=== PATIENT | female | born 1940 | race Asian ===

== ENCOUNTER 2020-06-18 19:51 | Emergency (ER) | payer OTHER, MEDICARE ==
[2020-06-18 20:10] VITALS: BP 155/79; PULSE 82; TEMP 98.3; BMI 24.4
--- NOTE | 2020-06-18 21:32 | PDOC ---
Documentation entered by Luis Spear SCRIBE, acting as scribe for Skye Banks MD. Skye Banks MD: This documentation has been prepared by the [email or web address] Angel, SCRIBE, under my direction and personally reviewed by me in its entirety. I confirm that the documentation accurately reflects all work, treatment, procedures, and medical decision making performed by me. History of Present Illness - General Chief Complaint: Pain, Acute Stated Complaint: RIGHT ANKLE/LEG PAIN Time Seen by Provider: 06/18/20 19:53 History Source: Patient Exam Limitations: No Limitations - History of Present Illness Initial Comments: 06/18/20 20:31 The patient is a 80 year old female with a significant past medical history of HTN who was sent by her PCP () for r/o DVT. The patient notes increasing swelling and redness in the inside of her right ankle area for the last 2 weeks. The patient also reports pain in her right calf and ankle when walking, especially when using stairs. The patient has taken no meds for pain because when she is not walking she says she is fine. The patient denies cough, SOB, fever/chills, recent traumas or wounds to her right lower extremity. She states that her previous doctor had ultrasound performed on her right leg "within the last year" to rule out blood clot. Long history of varicose veins/skin discoloration (venous stasis changes) lower legs bilaterally Past History - Medical History Allergies/Adverse Reactions: Allergies Allergy/AdvReac Type Severity Reaction Status Date / Time No Known Allergies Allergy Verified 06/18/20 19:52 Review of Systems - Review of Systems Able to Perform ROS?: Yes Comments:: 06/18/20 20:32 GENERAL/CONSTITUTIONAL: No fever or chills. No weakness. HEAD, EYES, EARS, NOSE AND THROAT: No change in vision. No ear pain or discharge. No sore throat. CARDIOVASCULAR: No chest pain or shortness of breath. RESPIRATORY: No cough, wheezing, or hemoptysis. GASTROINTESTINAL: No nausea, vomiting, diarrhea or constipation. GENITOURINARY: No dysuria, frequency, or change in urination. MUSCULOSKELETAL: +RLE pain/edema. No neck or back pain. SKIN: No rash NEUROLOGIC: No headache, vertigo, loss of consciousness, or change in strength/sensation. ENDOCRINE: No increased thirst. No abnormal weight change. HEMATOLOGIC/LYMPHATIC: No anemia, easy bleeding, or history of blood clots. ALLERGIC/IMMUNOLOGIC: No hives or skin allergy. *Physical Exam - Physical Exam 06/18/20 20:32 GENERAL: Awake, alert, and fully oriented, in no acute distress HEAD: No signs of trauma EYES: PERRLA, EOMI, sclera anicteric, conjunctiva clear ENT: Auricles normal inspection, hearing grossly normal, nares patent, oropharynx clear without exudates. Moist mucosa NECK: Normal ROM, supple, no lymphadenopathy, JVD, or masses LUNGS: Breath sounds equal, clear to auscultation bilaterally. No wheezes, and no crackles HEART: Regular rate and rhythm, normal S1 and S2, no murmurs, rubs or gallops ABDOMEN: Soft, nontender, normoactive bowel sounds. No guarding, no rebound. No masses EXTREMITIES: +RLE 3cm by 4cm erythematous, mildly tender and warm to touch just distal to medial malleolus. No purulent discharge or open wounds. Venous stasis changes of the distal lower extremity bilaterally, mild non pitting edema of the RLE to the mid calf, no tenderness present in the calf. NEUROLOGICAL: Cranial nerves II through XII grossly intact. Normal speech, normal gait SKIN: Warm, Dry, normal turgor, no rashes or lesions noted. 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 Morrison's office to rule out DVT. She states that she has had a few weeks of increasing redness/swelling in the medial portion of her right ankle and pain in the right calf/ankle with walking. She denies fever/chills or shortness of breath/respiratory symptoms. Exam as noted Doppler duplex ultrasound of the right lower extremity negative for DVT Results discussed with Dr. Morrison. The patient will be started on Augmentin as per Dr. Morrison (prescription has been sent to the patient's pharmacy). Patient will be discharged with advised to return to the ER if she has worsening pain/swelling/redness in her leg or if she develops fever. She has been advised to take each dose of the Augmentin with a full meal. Discharge - Discharge Information Problems reviewed: Yes Clinical Impression/Diagnosis: Cellulitis of right ankle Condition: Stable - Follow up/Referral Referrals: Arminda Morrison MD [Primary Care Provider] - - Patient Discharge Instructions Patient Printed Discharge Instructions: DI for Cellulitis -- Adult Additional Instructions: take antibiotics as prescribed by Dr. Morrison Elevate right lower leg is much as possible Return to ER if you have worsening swelling/pain/redness or if you develop fever Follow-up with Dr. Morrison as arranged - Post Discharge Activity
== END 2020-06-18 21:30 ==
LOC: FER 19:51
DX: L03.115 Cellulitis of right lower limb (principal)
CPT/HCPCS: 93971-TC; 99284-25

== ENCOUNTER 2023-10-25 15:06 | Inpatient (IN) | payer OTHER, MEDICARE ==
[2023-10-25] MEDS ORDERED: SODIUM CHLORIDE 0.9% 500 ML INFUS.BAG IV ONE (15:30)
[2023-10-25] MEDS ORDERED: diphenhydrAMINE HCL 25 MG CAPSULE (FP) PO ONE (15:30)
[2023-10-25] MEDS ORDERED: ACETAMINOPHEN 1000 MG/100 ML BAG IVPB ONE (15:30)
[2023-10-25] MEDS ORDERED: VANCOMYCIN 1,000 MG in DEXTROSE 5%-WATER - 250 ML IVPB ONE (15:35)
[2023-10-25] MEDS ORDERED: CEFTRIAXONE 1,000 MG in DEXTROSE 5%-WATER - 50 ML IVPB ONE (15:35)
[2023-10-25] MEDS ORDERED: diphenhydrAMINE HCL 50 MG CAPSULE ONE (16:11)
[2023-10-25] MEDS ORDERED: VANCOMYCIN 1,000 MG VIAL (RESTRICTED TO ID ONLY) ONE (16:11)
[2023-10-25] MEDS ORDERED: cefTRIAXone SODIUM 1 GM VIAL ONE (16:11)
[2023-10-25] MEDS ORDERED: ACETAMINOPHEN INJECTION 100 ML IVPB ONE (16:11)
[2023-10-25 16:37] LABS: HEMATOCRIT 37.2 % (32.4-45.2); HEMOGLOBIN 12.7 G/dL (10.7-15.3); MCH 30.3 pg (25.7-33.7); MCHC 34.1 g/dl (32.0-36.0); MEAN PLT VOLUME 7.1 fl (7.5-11.1); PLATELET COUNT 337.7 10^3/uL (134-434); RBC 4.18 10^6/uL (3.60-5.2); RDW 14.7 % (11.6-15.6); WHITE BLOOD COUNT 9.5 10^3/uL (4.0-10.8)
[2023-10-25 16:39] LABS: ALBUMIN 4.2 g/dl (3.4-5.0); ALK PHOS 94 U/L (45-117); ANION GAP 8 mmol/L (4-13); BILIRUBIN,TOTAL 0.4 mg/dl (0.2-1); CALCIUM 9.2 mg/dl (8.5-10.1); CHLORIDE 98 mmol/L (98-107); CO2 28 mmol/L (21-32); CREATININE 0.7 mg/dl (0.6-1.3); GLUCOSE,RANDOM 107 mg/dl (74-106); POTASSIUM 4.3 mmol/L (3.5-5.1); SGOT/AST 20 U/L (15-37); SGPT/ALT 18 U/L (7-52); SODIUM 134 mmol/L (136-145); TOT PROT 6.4 g/dl (6.4-8.2)
[2023-10-25 18:31] LABS: ERYTHROCYTE SEDIMENTATION RATE 8 mm/hr (0-30); PLATELET ESTIMATE ADEQUATE
[2023-10-25 21:56] VITALS: BMI 24.1
[2023-10-26] MEDS: diphenhydrAMINE HCL 25 MG CAPSULE (FP) PO PRN ×2 (07:52→14:01)
[2023-10-26] MEDS: LISINOPRIL 20 MG TABLET PO SCH (09:25)
[2023-10-26] MEDS: ENOXAPARIN NA (PORCINE) 40 MG/0.4 ML DISP.SYRIN SQ SCH (14:01)
[2023-10-26] MEDS ORDERED: VANCOMYCIN/WATER FOR INJ (PEG) 750 MG/150 ML BAG IVPB SCH (18:15)
[2023-10-26] MEDS: VANCOMYCIN/WATER FOR INJ (PEG) 1,000 MG/200 ML BAG IVPB SCH (19:59)
[2023-10-26] MEDS: TRIAMCINOLONE ACET 0.1% CREAM 15 GM TUBE TP SCH (22:15)
[2023-10-27] MEDS: LACTOBACILLUS ACIDOPHILUS 1 TABLET PO SCH (09:36)
[2023-10-27] MEDS: ENOXAPARIN NA (PORCINE) 40 MG/0.4 ML DISP.SYRIN SQ SCH (09:36)
[2023-10-27] MEDS: LISINOPRIL 20 MG TABLET PO SCH (09:36)
[2023-10-27] MEDS: TRIAMCINOLONE ACET 0.1% CREAM 15 GM TUBE TP SCH ×2 (09:38→21:20)
[2023-10-27] MEDS: VANCOMYCIN/WATER FOR INJ (PEG) 1,000 MG/200 ML BAG IVPB SCH (20:26)
[2023-10-27] MEDS: diphenhydrAMINE HCL 25 MG CAPSULE (FP) PO PRN (21:32)
[2023-10-28] MEDS: LACTOBACILLUS ACIDOPHILUS 1 TABLET PO SCH (10:37)
[2023-10-28] MEDS: ENOXAPARIN NA (PORCINE) 40 MG/0.4 ML DISP.SYRIN SQ SCH (10:37)
[2023-10-28] MEDS: LISINOPRIL 20 MG TABLET PO SCH (10:37)
[2023-10-28] MEDS: TRIAMCINOLONE ACET 0.1% CREAM 15 GM TUBE TP SCH ×2 (10:41→21:23)
[2023-10-28] MEDS: VANCOMYCIN/WATER FOR INJ (PEG) 1,000 MG/200 ML BAG IVPB SCH (19:43)
[2023-10-28] MEDS: diphenhydrAMINE HCL 25 MG CAPSULE (FP) PO PRN (21:34)
[2023-10-29] MEDS: LISINOPRIL 20 MG TABLET PO SCH (09:51)
[2023-10-29] MEDS: ENOXAPARIN NA (PORCINE) 40 MG/0.4 ML DISP.SYRIN SQ SCH (09:51)
[2023-10-29] MEDS: LACTOBACILLUS ACIDOPHILUS 1 TABLET PO SCH (09:51)
[2023-10-29] MEDS: TRIAMCINOLONE ACET 0.1% CREAM 15 GM TUBE TP SCH (09:59)
[2023-10-29 10:16] LABS: ALBUMIN 3.5 g/dl (3.4-5.0); BILIRUBIN,TOTAL 0.3 mg/dl (0.2-1); CALCIUM 8.6 mg/dl (8.5-10.1); CREATININE 0.4 mg/dl (0.6-1.3); POTASSIUM 3.7 mmol/L (3.5-5.1); TOT PROT 5.3 g/dl (6.4-8.2)
[2023-10-29 12:53] LABS: BASO % 0.9 % (0-2.0); EOS % 15.2 % (0-4.5); HEMATOCRIT 30.3 % (32.4-45.2); HEMOGLOBIN 10.6 GM/dL (10.7-15.3); LYMPH % 23.9 % (8-40); MCH 30.5 pg (25.7-33.7); MEAN PLT VOLUME 7.2 fl (7.5-11.1); MONO % 4.8 % (3.8-10.2); NEUT % 55.2 % (42.8-82.8); PLATELET COUNT 309 10^3/uL (134-434); RBC 3.48 M/mm3 (3.60-5.2); RDW 13.8 % (11.6-15.6); WHITE BLOOD COUNT 7.8 K/mm3 (4.0-10.0)
[2023-10-29 18:08] VITALS: RESP 16
[2023-10-29 18:26] VITALS: BP 125/63; PULSE 70; TEMP 98.6
== END 2023-10-29 18:39 | disposition home or self-care (01) | DRG 603 ==
LOC: FER 15:06 → FM/S 16:12
PROVIDERS: ADMIT Internal Medicine; ATTEND Internal Medicine
DX: L03.116 Cellulitis of left lower limb (principal); L97.828 Non-pressure chronic ulcer of other part of left lower leg with other specified severity; I10 Essential (primary) hypertension; T36.0X5A Adverse effect of penicillins, initial encounter; L27.0 Generalized skin eruption due to drugs and medicaments taken internally; I87.2 Venous insufficiency (chronic) (peripheral); Y92.230 Patient room in hospital as the place of occurrence of the external cause
CPT/HCPCS: 36415; 80053; 85025; 85027; 85651; 86140; 87040; 93005; 93971-TC; 99285-25; G0480